=== PATIENT | female | born 1925 | race Caucasian/White ===

== ENCOUNTER 2016-11-08 09:59 | Inpatient (IN) | payer OTHER ==
[~2016-11-08] VITALS: Ht 154.9 cm; Wt 41.1 kg
--- NOTE | ~2016-11-08 | HC ---
[facility] [place] [address] CONSULTATION Name: FATUMA RUEDA Room #: 427-P [facility] IN M.R.#: [id number] Admission: 11/08/16 Attend Phys: Juan M Krueger, Discharge: 11/13/16 Date of : [birth year] Report #: [id number] THIS REPORT FOR: //name// CC: Juan M Krueger DATE OF SERVICE: 11/13/2016 HISTORY OF PRESENT ILLNESS: The patient is an 89-year-old white female, premorbid roller walker ambulator, on chronic O2, who fell at home when she was up with her walker. She sustained a left hip intertrochanteric fracture. She underwent intramedullary nailing on 11/09/2016 and is allowed weightbearing as tolerated. She has had problems with acute on chronic hypoxic respiratory failure and has been followed by Pulmonary Medicine. She has also seen by Orthopedics and Internal Medicine. We are seeing her in rehabilitation medicine consultation. PAST MEDICAL HISTORY: Includes chronic pulmonary fibrosis on 2 liters nasal prong O2. She had coronary artery bypass grafting x 5 in 2013, history of permanent pacemaker for complete heart block, peripheral neuropathy, hypertension, elevated lipids, and osteopenia. MEDICATIONS: Please see the full medication listing. ALLERGIES: STATINS ARE NOTED TO CAUSE MUSCLE CRAMPS. SOCIAL HISTORY: The patient lives in a house alone. Ambulated with a front-wheeled walker. She has a 24-hour caregiver, was needing supervision. She was apparently independent with ADLs. REVIEW OF SYSTEMS: Did not offer any current complaints of chest pain or shortness of breath or abdominal discomfort. She notes she is overall fatigued, some mild left hip discomfort. She has some numbness of his distal feet, which is premorbid. PHYSICAL EXAMINATION: GENERAL: An 86-year-old small statured, thin, white female in no obvious distress. The patient is alert. She is pleasant. VITAL SIGNS: Last recorded temperature 97.7, pulse 73, respirations 19, blood pressure 152/77. HEENT: Appeared to be benign. Facies are symmetric. EXTREMITIES: She has functional range of motion of both upper extremities. Strength is grade 4-/5. DTRs are trace to 1. In her lower extremities, her left hip is dressed. There is no focal calf swelling. She can dorsiflex that left ankle. She has decreased sensation of her distal lower extremities in a stocking distribution. Right lower extremity strength is probably a grade 3+/5. NEUROLOGIC: She is a little groggy, but she will follow basic [address] [address] CONSULTATION Name: FATUMA RUEDA Room #: 427-P [facility] IN M.R.#: [id number] Admission: 11/08/16 Attend Phys: Juan M Krueger DO Discharge: 11/13/16 Date of : [birth year] Report #: [id number] Tends to defer, answers to her daughter. She is max assist with sit to stand. ASSESSMENT: An 89-year-old white female with the following problem list: 1. Left hip intertrochanteric fracture status post intramedullary nailing on 11/09/2016, weightbearing as tolerated. 2. Acute on chronic hypoxic respiratory failure. 3. Premorbid history of peripheral neuropathy. 4. Chronic pulmonary fibrosis on chronic nasal prong O2 premorbidly. 5. History of coronary artery bypass grafting in 2013. 6. History of a prior permanent pacemaker for complete heart block. 7. Osteopenia. PLAN: Her tolerance for therapy is limited. Note that there are plans for her to go to a nursing home facility. Insurance is being checked regarding therapy options with case management involved. I did not see that she has the tolerance at this point in time for an acute 5-North inpatient rehabilitation stay, so I would agree with a nursing home facility stay as she is being arranged. <ELECTRONICALLY SIGNED> By: Caio Alamo MD 11/15/16 1608 [id number] Caio Alamo MD /nt
--- NOTE | ~2016-11-08 | H ---
[facility] [place] [address] HISTORY AND PHYSICAL Name: FATUMA RUEDA Room #: 427-P ADM IN M.R.#: [id number] Admission: 11/08/16 Attend Phys: Juan M Krueger, DO Discharge: Date of : [birth year] Report #: [id number] THIS REPORT FOR: //name// CC: Juan M Krueger HISTORY OF PRESENT ILLNESS: This 89-year-old white female who was admitted with fractured left hip. She fell this morning at home when she walked without her walker. Denies any trauma other than to her left hip. Denies syncope. PAST MEDICAL HISTORY: Chronic pulmonary fibrosis, on chronic oxygen at 2 liters, but has been fairly stable and has not been hospitalized for over a year. She has had 5-vessel coronary artery bypass surgery in 2013, permanent pacemaker for complete heart block, hysterectomy, cholecystectomy, peripheral neuropathy, hypertension, mixed hyperlipidemia, osteopenia, hypothyroidism, and macular degeneration. MEDICATIONS ON ADMISSION: Vitamin D 400 units daily, vitamin B1 daily, vitamin C 500 mg daily, omega-3 1000 mg daily, Diovan HCT 160/25 one daily, metoprolol succinate ER 25 mg daily, Synthroid 0.125 mg on Tuesdays and and 0.112 mg on Sundays, Mondays, Wednesdays, Fridays and Saturdays, and DuoNeb treatments p.r.n. ALLERGIES: None, but STATINS caused muscle cramps. REVIEW OF SYSTEMS: She has multimedia editor help at home. Her family is very attentive. She denies recent respiratory symptoms, cough, productive sputum, dysphagia, confusion, chest pain, diarrhea, or dysuria. PHYSICAL EXAMINATION: GENERAL: A chronically ill, but alert white female, recognized me immediately. VITAL SIGNS: Blood pressure initially 182/103, currently 185/96, pulse 79, respirations 17, and temperature afebrile. HEAD: No rash or trauma. EARS, NOSE AND THROAT: Mucosa is dry. EYES: No icterus. NECK: Supple without bruits. LUNGS: Cough is dry, but lungs have diffuse fibrotic crackles consistent with fibrosis. HEART: Regular rhythm without murmur or gallop. ABDOMEN: Soft, without mass or tenderness. Bowel sounds are slightly hypoactive. EXTREMITIES: No edema. Her left leg is laterally rotated. MUSCULOSKELETAL AND NEUROLOGIC: She knows she is in [place] and November. Can move her arms and right leg without too much difficulty. She has significant sensory deficit in her feet. Left leg is laterally rotated, but she can move her foot. Both feet are cool. [address] [address] HISTORY AND PHYSICAL Name: FATUMA RUEDA Room #: 427-P [facility] IN M.R.#: [id number] Admission: 11/08/16 Attend Phys: Juan M Krueger DO Discharge: Date of : [birth year] Report #: [id number] LABORATORY DATA: Her urine is clear. Urinalysis is essentially negative. White count 13,500, hemoglobin 14.2, MCV 81. Protime INR 1.1. Sodium low at 126, potassium low at 3.0, CO2 of 30, BUN 16, creatinine 0.9, blood sugar 185, calcium 9.6. BNP slightly high at 547. CAT scan of the head and cervical spine shows old fractures of the spine with probable pulmonary fibrosis. CAT scan of the head showed atrophic changes. Lower extremity ultrasound showed no stenosis in the left leg. Hip x-ray shows a left intertrochanteric femur fracture with displacement. Left knee x-ray shows severe arthritis, but no fracture. IMPRESSION: 1. Left intertrochanteric fracture secondary to fall. 2. Peripheral neuropathy. 3. Chronic pulmonary fibrosis. 4. Coronary artery disease without angina. 5. Permanent pacemaker for complete heart block. 6. Hypertension. 7. Mixed hyperlipidemia. 8. History of hypothyroidism. 9. History of macular degeneration. PLAN: I have asked pulmonary and cardiology to follow the patient perioperatively. The family knows that the patient is at high risk to be bedridden, but if we can stabilize this fracture, she can be mobilized and has better chance of prolonged recovery. Prognosis guarded. <ELECTRONICALLY SIGNED> By: Juan M Krueger DO 11/09/16 0739 [id number] Juan M Krueger DO /nt
--- NOTE | ~2016-11-08 | HC ---
[facility] [place] [address] CONSULTATION Name: FATUMA RUEDA Room #: 427-P [facility] IN M.R.#: [id number] Admission: 11/08/16 Attend Phys: Juan M Krueger DO Discharge: 11/13/16 Date of : [birth year] Report #: [id number] THIS REPORT FOR: //name// CC: Juan M Krueger DO PRIMARY CARE PHYSICIAN: Juan M Krueger D.O. REASON FOR REFERRAL: Pulmonary fibrosis. HISTORY OF PRESENT ILLNESS: The patient is an 89-year-old white female who was brought to Emergency Room following a fall. She was subsequently found to have a left hip fracture. The patient has known history of pulmonary fibrosis along with chronic hypoxic respiratory failure. A pulmonary consultation was requested. According to the patient's family, the patient was diagnosed with pulmonary fibrosis few years ago. She ____ less than 2 years. She is on 1-2 liters of O2. She is primarily on bronchodilators. They note that the patient has not undergone treatment for her pulmonary fibrosis. The patient was in his usual state of health until last evening, the patient fell. She complained of left hip pain. X-ray confirms a left hip fracture. Currently, she is somewhat sedated following pain medications. Plans are to take her to the OR tomorrow morning. PAST MEDICAL HISTORY: Notable for pulmonary fibrosis as mentioned above, diagnosed few years ago; chronic hypoxic respiratory failure, on chronic O2 at 1-2 liters; hypertension; and hypothyroidism. PAST SURGICAL HISTORY: Status post permanent pacemaker placement. ALLERGIES: None noted. CURRENT MEDICATIONS: List reviewed. FAMILY HISTORY: Noncontributory. SOCIAL HISTORY: She lives independently at home. She has a colorer who looks in on her daily. She has family who lives in town. She has a daughter who is a nurse, who has a durable power of privacy attorney. The patient smoked briefly in college. There is no history of alcohol use. REVIEW OF SYSTEMS: Deferred as the patient is not able to provide history. PHYSICAL EXAMINATION: [facility] [address] [place] [address] CONSULTATION Name: FATUMA RUEDA Room #: 427-P [facility] IN M.R.#: [id number] Admission: 11/08/16 Attend Phys: Juan M Krueger DO Discharge: 11/13/16 Date of : [birth year] Report #: [id number] GENERAL: She is arousable and appears to be in mild distress due to pain. VITAL SIGNS: Temperature is 97 degrees Fahrenheit, pulse is 74, respiratory rate is 20, blood pressure is 173/83 mmHg, saturation is 97%. HEENT: Normocephalic, atraumatic. NECK: Supple without lymphadenopathy or thyromegaly. CHEST: Breath sounds are fair bilaterally due to poor effort. Few scattered crackles. No wheezes. CARDIOVASCULAR: Heart sounds are distant. No obvious murmurs or gallop. Pulses are 2+/4+ bilaterally. ABDOMEN: Soft, nontender, no organomegaly or masses felt. GENITOURINARY AND RECTAL: Deferred. EXTREMITIES: There is no edema, cyanosis or clubbing. LABORATORY DATA: Portable chest x-ray shows bilateral interstitial infiltrates. Compared to prior chest x-ray from 2009, there have been increasing diffuse interstitial infiltrates, some areas of pulmonary fibrosis also noted. CT of the cervical spine shows degenerative changes. Otherwise, no acute fractures noted. Left lower extremity arterial ultrasound shows no evidence of arterial occlusion. CT of head shows atrophic changes, no acute process. Hip x-ray shows left intertrochanteric femur fracture. Knee x-ray shows degenerative changes. Sodium 126, potassium 3.0, chloride 90. CO2 is 30. Creatinine is 0.9. BUN is 16. WBC 11,500. Hemoglobin is 14.2. Platelets are normal. IMPRESSION: 1. Acute left intertrochanteric fracture, scheduled for surgery tomorrow. 2. History of pulmonary fibrosis with chronic hypoxic respiratory failure for the last 4 years. 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 3. Hypertension. 4. Hyponatremia. 5. Hypokalemia. 6. Leukocytosis, likely reactive, no evidence of bandemia. RECOMMENDATION AND DISCUSSION: The patient is relatively stable from pulmonary standpoint. She has saturation adequate on 2 liters of O2. X-ray findings likely suggest chronic changes. I do not suspect infectious process such as aspiration pneumonia at this time. We will correct electrolyte abnormalities. The patient will need IV fluids. Follow laboratory closely. I had a detailed discussion with the patient's daughter. Given the patient's pulmonary impairment, her perioperative pulmonary risk is moderate to high. This would include worsening hypoxia, respiratory tract infection, atelectasis, etc. They voiced understanding. [address] [address] CONSULTATION Name: FATUMA RUEDA Room #: 427-P [facility] IN M.R.#: [id number] Admission: 11/08/16 Attend Phys: Juan M Krueger, DO Discharge: 11/13/16 Date of : [birth year] Report #: [id number] The patient does have medical directive. According to her daughter, she is a DNR. Thank you for this consultation. <ELECTRONICALLY SIGNED> By: Prashant Gonzales MD 11/15/16 1233 1656 0305 Prashant Gonzales MD /nt
--- NOTE | ~2016-11-08 | D ---
[facility] [place] [address] DISCHARGE SUMMARY Name: FATUMA RUEDA Room #: 427-P [facility] IN M.R.#: [id number] Admission: 11/08/16 Attend Phys: Juan M Krueger DO Discharge: 11/13/16 Date of : [birth year] Report #: [id number] THIS REPORT FOR: //name// CC: Napoleon Greenfield Juan M Gonzales MD DATE OF SERVICE: 11/13/2016 This 89-year-old white female was admitted after she fell at home and fractured her left hip. There was no head trauma, other injury or syncope. Her past history included chronic oxygen dependent pulmonary fibrosis, 5-vessel coronary artery bypass surgery, permanent pacemaker for complete heart block, peripheral neuropathy, hypertension, mixed hyperlipidemia, hypothyroidism, macular degeneration, mild organic brain syndrome, hysterectomy, and cholecystectomy. PHYSICAL EXAMINATION: GENERAL: Initial physical revealed a chronically ill-appearing, uncomfortable white female. Left lower leg was laterally rotated. VITAL SIGNS: BP was elevated to 182/103. Mucosa was dry. LUNGS: Revealed diffuse fibrotic crackles. CARDIAC: Revealed no murmur or gallop. ABDOMEN: Soft and nontender. EXTREMITIES: No edema. NEUROLOGIC: Mentally, she knew the month and in the hospital. She was able to move her right leg and both arms, but not her left leg. She had significant sensory deficit in her feet. LABORATORY DATA: Urinalysis was negative. White count 13,500, hemoglobin 14.2. Sodium low at 126, potassium low at 3.0, CO2 30, BUN 16, creatinine 0.9, blood sugar 185, calcium 9.6. CAT scan of the head and cervical spine showed old fractures and severe degenerative changes and some cerebral atrophy. Ultrasound of the left leg showed no DVT. HOSPITAL COURSE: The patient was stabilized for surgery, was seen in consult by Dr. Gonzales of pulmonary. Her EKG showed atrial sensed ventricular paced complexes. On 11/08/2016, Dr. Garsia performed left hip intramedullary nailing for intertrochanteric femur fracture. Postoperatively, the patient developed blood loss anemia and received 1 unit of packed cells. She did not develop significant delirium or respiratory failure. She had difficulty mobilizing, however. Her final hemoglobin was 9.8, white count 6700. Sodium 134, potassium 3.8, CO2 33, BUN 12, creatinine 0.7, estimated GFR 79, blood sugar 97, calcium 9.2. On 11/13/2016, she was transferred to [facility]. Her [address] [address] DISCHARGE SUMMARY Name: FATUMA RUEDA Room #: 427-P [facility].#: [id number] Admission: 11/08/16 Attend Phys: Juan M Krueger DO Discharge: 11/13/16 Date of : [birth year] Report #: [id number] Oakes catheter was to be removed. She will remain on a regular diet to increase nutrition, Ensure supplements twice a day, oxygen 2 liters continuously, DuoNeb treatments q.i.d., Lovenox 30 mg subq for at least another week, hydrocodone 5/325 one q.4h. p.r.n. pain, alprazolam .125 mg q.6h. p.r.n. anxiety, famotidine 20 mg daily, Tylenol 650 mg q.6h. p.r.n. pain, alprazolam 0.25 mg at bedtime, metoprolol succinate 25 mg daily, levothyroxine 0.112 mg daily, valsartan/hydrochlorothiazide 160/25 one daily and clonidine 0.1 mg q.6h. for pressure over 170. Overall prognosis is guarded. FINAL DIAGNOSES: 1. Acute intertrochanteric fracture of left hip secondary to fall. 2. Chronic interstitial lung disease, oxygen dependent with pulmonary fibrosis. 3. Coronary artery disease, bypass graft without angina. 4. Hypothyroidism. 5. Hypertension. 6. Organic brain syndrome. 7. Chronic kidney disease stage 3. <ELECTRONICALLY SIGNED> By: Juan M Krueger DO 11/15/16 0742 0829 [id number] Juan M Krueger DO /nt
--- NOTE | ~2016-11-08 | EKG ---
[place] [address] [facility] [place] [address] ELECTROCARDIOGRAM REPORT Name: QUINTONGEORGEFATUMA DAPHNE Room #: 427-P ADM IN M.R.#: [id number] Admission: 11/08/16 Attend Phys: Juan M Krueger DO Discharge: Date of : [birth year] Report #: [id number] THIS REPORT FOR: //name// [facility] ED Test Date: 2016-11-08 Test Time: 10:07:07 Pat Name: FATUMA RUEDA Department: Room: [facility] Gender: F Media Producer: [id number] : [id number] Requested By: Stoney Rivas Order Number: [id number] MD: Zack Villatoro Measurements Intervals [place] Rate: 64 P: 20 [place]: 165 QRS: -61 QRSD: 115 T: 127 QT: 465 QTc: 480 Interpretive Statements Atrial-sensed ventricular-paced complexes No further analysis attempted due to paced rhythm Compared to ECG 07/21/1993 16:17:00 Ventricular pacing is now present Electronically Signed On 11-09-2016 8:52:49 CDT by Zack Villatoro [email or web address] <ELECTRONICALLY SIGNED> By: Zack Villatoro MD, [facility] 11/09/16 0852 [id number] [id number] Zack Villatoro MD, [facility] /EPI
--- NOTE | ~2016-11-08 | O ---
[facility] [place] [address] OPERATIVE REPORT Name: FATUMA RUEDA Room #: 427-P [facility] IN M.R.#: [id number] Admission: 11/08/16 Attend Phys: Juan M Krueger DO Discharge: Date of : [birth year] Report #: [id number] THIS REPORT FOR: //name// CC: Juan M Krueger DATE OF SERVICE: 11/09/2016 DATE OF SERVICE: 11/09/2016 PREOPERATIVE DIAGNOSES: Left hip pain, intertrochanteric femur fracture. POSTOPERATIVE DIAGNOSES: Left hip pain, intertrochanteric femur fracture. PROCEDURE PERFORMED: Left hip intramedullary nailing. SURGEON: Joe Woo M.D. SERVER SYSTEMS ADMINISTRATOR: Elis Andino PA-C. ANESTHESIA: General per LMA. FLUIDS: 200 mL crystalloid. ESTIMATED BLOOD LOSS: Approximately 20 mL. IMPLANTS UTILIZED: Synthes TFN nail 10 x 170 mm 135 degree short TFN nail, 85 mm helical blade, 36 mm distal locking screw. DESCRIPTION OF PROCEDURE: After proper identification of the patient and the operative site in preoperative holding area, the operative site was signed by myself. The patient was initially seen by my partner, Dr. Harper. We again reviewed the patient's medical status. The patient has been cleared from medical standpoint. We discussed the risks, benefits, alternatives and potential complications of her injury as well as treatment and she wished to proceed with the above. She was brought back to the operative suite after induction of satisfactory general anesthesia per LMA. She was very gently and carefully positioned on the [place] fracture table. Legs were scissored. Intraoperative C-arm revealed that the fracture was reduced near anatomically. The left hip was sterilely prepped and draped in usual manner. Final skin draping was with Ioban isolation drape. An incision proximal to the greater trochanter was planned. Skin was incised sharply. Full-thickness skin flaps were developed. Fascia was incised longitudinally. An insertional was placed about the tip of the greater trochanter. This was advanced into the proximal femur and the patient's intramedullary canal appeared to have best fit with a 10 mm helical blade long guidewire was inserted. A 10 mm TFN nail was then placed on the insertion handle and gently impacted into position. After it was [facility] [address] [place] [address] OPERATIVE REPORT Name: FATUMA RUEDA Room #: 427-P [facility] IN M.R.#: [id number] Admission: 11/08/16 Attend Phys: Juan M Krueger DO Discharge: Date of : [birth year] Report #: [id number] satisfactorily seated, the helical blade drill sleeves were placed above the skin. An additional incision was created here. Drill sleeves guide was then advanced to the lateral cortex of the femur. A guidepin was inserted into the femoral head while checking in the AP and lateral plane. It was satisfactorily positioned, measured 85 mm, cortex was reamed and the helical blade was carefully impacted into position. It was satisfactorily positioned and proximal locking screw was tightened. Helical blade, drill sleeves and a guide pin was then carefully removed. Next, through a separate more distally based incision, a 36-mm locking screw was placed through the nail. Final implant images were taken in the AP and lateral planes. Overall hardware position and fracture was satisfactory. The patient tolerated the procedure well. Insertion handle was removed. The wounds were irrigated with normal saline. Fascia was closed with #1 Vicryl, 2-0 Vicryl for the subcutaneous tissues, final skin closure was with krishan. Sterile dressing was applied. At time of dictation, the patient was still in the operative suite with anticipated discharge to recovery room in stable condition. Qualified automotive parts counter assistant was utilized throughout the entire procedure to aid in patient limb positioning, visualization, instrument passage, closure and dressing application. By: [id number] Joe Woo MD /sherin
--- NOTE | ~2016-11-08 | HC ---
[facility] [address] [place] [address] CONSULTATION Name: FATUMA RUEDA Room #: 427-P ADM IN M.R.#: [id number] Admission: 11/08/16 Attend Phys: Juan M Krugeer DO Discharge: Date of : [birth year] Report #: [id number] THIS REPORT FOR: //name// CC: Juan M Krueger DATE OF SERVICE: 11/08/2016 REQUESTING PROVIDER: physician Stoney's perinatal breastfeeding assistant nurse in the Emergency Room. REASON FOR CONSULTATION: Left hip fracture. PAST MEDICAL HISTORY: Pulmonary fibrosis, coronary artery disease, anxiety, and hypertension. PAST SURGICAL HISTORY: CABG, pacemaker, hysterectomy, arm fracture several decades ago, and blepharoplasty. MEDICATIONS: Aspirin, metoprolol, Synthroid, valsartan/hydrochlorothiazide, Xanax, and clonidine. ALLERGIES: No known drug allergies. FAMILY HISTORY: Noncontributory. SOCIAL HISTORY: She presently lives alone with a walker. She has assistants, nursing care, who spend the night with her and most of the day with her and prepare meals for her. She had prior use of tobacco in her 20s and 30s, but none recently. No alcohol or drug abuse. CHIEF COMPLAINT: Left hip pain. HISTORY OF PRESENT ILLNESS: The patient is an 89-year-old community ambulator, who typically uses a walker and lives alone in [facility], who was found down in her kitchen around 9:00 this morning by her niece who is staying overnight with her. She estimates that she fell several hours prior to that. She was brought by EMS to [facility] where she was diagnosed with a displaced left intertrochanteric hip fracture. She has received pain management and initial workup, and she is being admitted for treatment. According to the patient's family who are present at bedside now (3 daughters), she was having slight dementia, but was previously safe in her home with the current living arrangement. PHYSICAL EXAMINATION: VITAL SIGNS: She is afebrile, vital signs stable. GENERAL: She is a very frail elderly-appearing female, she is lying supine on the hospital bed. She is responsive. She communicates appropriately, alert and [facility] [address] [place] [address] CONSULTATION Name: FATUMA RUEDA Room #: 427-P ADM IN M.R.#: [id number] Admission: 11/08/16 Attend Phys: Juan M Krueger DO Discharge: Date of : [birth year] Report #: [id number] oriented, in no acute distress. EXTREMITIES: Bilateral upper extremities showed no signs of acute orthopedic injury, right lower extremity shows no signs of acute orthopedic injury. She has a strong palpable popliteal pulse on the right side. I am unable to palpate dorsalis pedis or posterior tibial pulse on the right. She has sensation intact, has a warm foot with brisk capillary refill and motor function intact. The left foot is shortened and externally rotated. Manipulation of the leg is deferred due to the fracture. She has a strong palpable popliteal artery. I am unable to palpate a dorsalis pedis or posterior tibial pulse on the left, but making it symmetric with the right side. She has a warm foot with brisk capillary refill. She is grossly sensate and is able to plantarflex and dorsiflex the toes. LABORATORY DATA: CBC and BMP are reviewed. Type and screen is pending. RADIOGRAPHS: AP pelvis and two views of the left hip demonstrate a displaced comminuted left intertrochanteric hip fracture with shortening and apex anterior angulation as well as varus angulation. IMPRESSION: This is an 89-year-old female with pulmonary fibrosis, coronary artery disease post-coronary artery bypass graft, previously status post same level fall earlier today with a displaced left intertrochanteric hip fracture. PLAN: She will require surgical treatment of this for pain control and optimize mobility. We will plan for surgery tomorrow if she is medically optimized. At that point, plan will be an IM nail to the left hip. I explained the reasons, indications and alternatives for this surgical treatment of this injury to all of her daughters and answered their questions. They understand the risks of surgery including the mortality perioperatively. We discussed possible need for temporary or permanent placement if safety remains an issue of long-term. In addition, some hip fracture patients do rely more on a wheelchair postoperatively if they were previously using a walker as she was prior to the injury. We discussed the risk for possible blood transfusion postoperatively as well. <ELECTRONICALLY SIGNED> By: Gallo Harper MD 11/09/16 [id number] Gallo Harper MD /nt
[2016-11-08 10:00] VITALS: BP 182/103
[2016-11-08] MEDS ORDERED: XANAX 0.5 MG0.5 MG PO (10:17)
[2016-11-08] MEDS ORDERED: TOPROL XL25 MG PO (10:19)
[2016-11-08] MEDS ORDERED: CLONIDINE0.1 PO (10:19)
[2016-11-08] MEDS ORDERED: LEVOTHYROXINE112 MCG PO (10:20)
[2016-11-08] MEDS ORDERED: VALSARTAN-HCTZ1 EAC2 PO (10:20)
[2016-11-08 10:22] LABS: HEMOGLOBIN 14.2 gm/dL (12.0-15.0); MCH 28.2 pg (26.0-34.0); MCHC 34.6 g/dL (28.0-37.0); MCV 81.7 fL (80.0-100.0); PLATELET COUNT 321 thou/uL (150-400); RBC 5.02 mil/uL (4.20-5.00); RDW 13.7 % (10.5-14.5); WBC 13.5 thou/uL (4.0-11.0)
[2016-11-08 10:23] LABS: MANUAL DIFF YES
[2016-11-08 10:25] LABS: CALCIUM 9.6 mg/dL (8.5-10.1); CREATININE 0.9 mg/dL (0.6-1.0)
[2016-11-08 10:41] LABS: APTT 29.9 Seconds (24.5-32.8); INR 1.1
[2016-11-08 10:49] LABS: URINE BILIRUBIN NEGATIVE (Negative); URINE BLOOD 2+ (Negative); URINE COLOR YELLOW; URINE GLUCOSE-RANDOM* 1+ (Negative); URINE KETONES 1+ (Negative); URINE LEUKOCYTES-REFLEX NEGATIVE (Negative); URINE PROTEIN (DIPSTICK) TRACE (Negative); URINE UROBILINOGEN 0.2 E.U./dl (0.2-1.0)
[2016-11-08 11:51] LABS: CASTS None Seen /LPF (None Seen); CRYSTALS None Seen /LPF (None Seen); SQUAMOUS 0-3 Few /LPF (0-3); URINE WBC-REFLEX 0-5 Rare /HPF (0-5)
[2016-11-08 12:01] LABS: ABSOLUTE NEUTROPHILS 12.6 thou/uL (1.4-8.2); ANISOCYTOSIS SLIGHT; TOTAL CELL COUNT 100
[2016-11-08 12:59] VITALS: BP 164/99
[2016-11-08 15:18] VITALS: BP 173/83
[2016-11-08 15:27] VITALS: BP 171/98
[2016-11-08 17:27] VITALS: BP 185/96
[2016-11-08 20:00] VITALS: BP 154/82
[2016-11-09] VITALS (9 sets, daily range): BP systolic 139–184; BP diastolic 76–97
[2016-11-09 06:25] LABS: HEMATOCRIT 36.5 % (37.0-47.0); HEMOGLOBIN 12.6 gm/dL (12.0-15.0); MCH 28.5 pg (26.0-34.0); MCHC 34.7 g/dL (28.0-37.0); MCV 82.4 fL (80.0-100.0); PLATELET COUNT 272 thou/uL (150-400); RBC 4.43 mil/uL (4.20-5.00); RDW 14.1 % (10.5-14.5)
[2016-11-09 06:32] LABS: CALCIUM 9.7 mg/dL (8.5-10.1); CREATININE 0.8 mg/dL (0.6-1.0); MANUAL DIFF YES
[2016-11-09 06:33] LABS: POTASSIUM 4.5 mmol/L (3.5-5.1)
[2016-11-09 08:04] LABS: ABSOLUTE NEUTROPHILS 11.2 thou/uL (1.4-8.2); TOTAL CELL COUNT 100
[2016-11-09 08:05] LABS: ANISOCYTOSIS SLIGHT
[2016-11-10] VITALS: BP 141/74
[2016-11-10 04:58] VITALS: BP 159/80
[2016-11-10 07:09] LABS: HEMATOCRIT 28.6 % (37.0-47.0); MCH 28.7 pg (26.0-34.0); MCV 84.3 fL (80.0-100.0); RBC 3.39 mil/uL (4.20-5.00); RDW 13.7 % (10.5-14.5); WBC 8.9 thou/uL (4.0-11.0)
[2016-11-10 07:14] LABS: HEMOGLOBIN 9.7 gm/dL (12.0-15.0); MANUAL DIFF YES; PLATELET COUNT 193 thou/uL (150-400)
[2016-11-10 07:19] LABS: CALCIUM 8.7 mg/dL (8.5-10.1); CREATININE 0.7 mg/dL (0.6-1.0); POTASSIUM 4.1 mmol/L (3.5-5.1)
[2016-11-10 07:35] VITALS: BP 138/68
[2016-11-10 08:30] LABS: ABSOLUTE NEUTROPHILS 7.2 thou/uL (1.4-8.2); ANISOCYTOSIS 1+; TOTAL CELL COUNT 100
[2016-11-10 16:12] VITALS: BP 139/63
[2016-11-10 20:00] VITALS: BP 139/65
[2016-11-11 04:11] VITALS: BP 152/75
[2016-11-11 06:08] LABS: HEMATOCRIT 25.2 % (37.0-47.0); HEMOGLOBIN 8.7 gm/dL (12.0-15.0); MCH 28.7 pg (26.0-34.0); MCHC 34.4 g/dL (28.0-37.0); MCV 83.5 fL (80.0-100.0); PLATELET COUNT 189 thou/uL (150-400); RBC 3.02 mil/uL (4.20-5.00); RDW 13.7 % (10.5-14.5); WBC 8.5 thou/uL (4.0-11.0)
[2016-11-11 06:14] LABS: CALCIUM 8.3 mg/dL (8.5-10.1); CREATININE 0.7 mg/dL (0.6-1.0); MANUAL DIFF YES
[2016-11-11 08:00] VITALS: BP 158/71
[2016-11-11 08:25] LABS: ABSOLUTE NEUTROPHILS 7.2 thou/uL (1.4-8.2); TOTAL CELL COUNT 100
[2016-11-11 08:26] LABS: ANISOCYTOSIS 1+
[2016-11-11 15:51] VITALS: BP 142/61
[2016-11-11 19:08] VITALS: BP 14/68
[2016-11-12 03:56] VITALS: BP 145/69
[2016-11-12 05:36] LABS: HEMATOCRIT 23.4 % (37.0-47.0); HEMOGLOBIN 8.1 gm/dL (12.0-15.0); MCHC 34.6 g/dL (28.0-37.0); MCV 83.8 fL (80.0-100.0); RBC 2.8 mil/uL (4.20-5.00); RDW 14.1 % (10.5-14.5); WBC 6.8 thou/uL (4.0-11.0)
[2016-11-12 06:02] LABS: CALCIUM 8.4 mg/dL (8.5-10.1); CREATININE 0.7 mg/dL (0.6-1.0)
[2016-11-12 07:15] VITALS: BP 134/68
[2016-11-12 11:33] VITALS: BP 138/66; BP 152/77
[2016-11-12 15:30] VITALS: BP 148/74
[2016-11-12 20:00] VITALS: BP 148/87
[2016-11-12 23:20] VITALS: BP 156/79
[2016-11-13 04:00] VITALS: BP 117/85
[2016-11-13 04:20] LABS: HEMATOCRIT 29.2 % (37.0-47.0); HEMOGLOBIN 9.8 gm/dL (12.0-15.0); MCH 28.4 pg (26.0-34.0); MCHC 33.7 g/dL (28.0-37.0); MCV 84.2 fL (80.0-100.0); RBC 3.47 mil/uL (4.20-5.00); RDW 14.2 % (10.5-14.5); WBC 6.7 thou/uL (4.0-11.0)
[2016-11-13 04:40] LABS: CALCIUM 9.2 mg/dL (8.5-10.1); CREATININE 0.7 mg/dL (0.6-1.0); POTASSIUM 3.8 mmol/L (3.5-5.1)
[2016-11-13 07:36] VITALS: BP 152/77
[2016-11-13] MEDS ORDERED: DUONEB 2.5-0.5 M3 ML INH (09:24)
[2016-11-13] MEDS ORDERED: ENOXAPARIN30 MG/0.1 SUBQ (09:24)
[2016-11-13] MEDS ORDERED: HYDROCODON-ACE1 EAC7 PO (09:24)
[2016-11-13] MEDS ORDERED: PEPCID20 MG PO (09:25)
[2016-11-13] MEDS ORDERED: BISACODYL SUPP10 MG RECTAL (09:25)
[2016-11-13] MEDS ORDERED: ALPRAZOLAM 0.0.25 MG PO (09:26)
[2016-11-13] MEDS ORDERED: ACETAMINOPHEN325 M1 PO (09:34)
== END 2016-11-13 14:03 | DRG 480 ==
LOC: ER 09:59 → 4E 12:22 → EROBS 12:22 → 4E 14:02
PROVIDERS: Internal Medicine; Internal Medicine Pulmonary Disease; Physician Assistant
PROC: 0QH706Z Insertion of Intramedullary Internal Fixation Device into Left Upper Femur, Open Approach (ICD-10-PCS; principal; 2016-11-09)
PROC: 30233N1 Transfusion of Nonautologous Red Blood Cells into Peripheral Vein, Percutaneous Approach (ICD-10-PCS; 2016-11-12)
DX: S72.142A Displaced intertrochanteric fracture of left femur, initial encounter for closed fracture (principal); J96.21 Acute and chronic respiratory failure with hypoxia; E87.1 Hypo-osmolality and hyponatremia; J98.11 Atelectasis; E44.0 Moderate protein-calorie malnutrition; Z68.1 Body mass index [BMI] 19.9 or less, adult; J84.9 Interstitial pulmonary disease, unspecified; T68.XXXA Hypothermia, initial encounter; I25.10 Atherosclerotic heart disease of native coronary artery without angina pectoris; F41.9 Anxiety disorder, unspecified; J84.10 Pulmonary fibrosis, unspecified; E87.6 Hypokalemia; D72.829 Elevated white blood cell count, unspecified; G62.9 Polyneuropathy, unspecified; I11.0 Hypertensive heart disease with heart failure; M85.80 Other specified disorders of bone density and structure, unspecified site; E03.9 Hypothyroidism, unspecified; E78.5 Hyperlipidemia, unspecified; Z66 Do not resuscitate; F09 Unspecified mental disorder due to known physiological condition; D50.0 Iron deficiency anemia secondary to blood loss (chronic); W18.39XA Other fall on same level, initial encounter; Y93.89 Activity, other specified; Y92.89 Other specified places as the place of occurrence of the external cause; Z95.0 Presence of cardiac pacemaker; Z95.1 Presence of aortocoronary bypass graft; Z90.710 Acquired absence of both cervix and uterus; Z79.899 Other long term (current) drug therapy; Y99.8 Other external cause status
CPT/HCPCS: 10084; 10183; 50010; 50101; 50133; 50386; 51412; 51538; 51817; 52145; 52146; 52304; 56525; 57092; 62110; 62900; 65060; 70005